=== PATIENT | female | born 1990 | race Two or more races ===

== ENCOUNTER 2024-11-18 08:40 | Emergency (ER) | payer OTHER ==
[~2024-11-18] VITALS: Ht 157.5 cm; Wt 46.7 kg
[2024-11-18] MEDS ORDERED: ACETAMINOPHEN 500 MG GEL..CAP PO ONE ×2 (09:15)
[2024-11-18] MEDS ORDERED: KETOROLAC TROMETHAMINE 30 MG VIAL ONE (09:15)
[2024-11-18] MEDS ORDERED: FAMOTIDINE/PF 20 MG in 0.9 % SODIUM CHLORIDE 8 ML IV PUSH ONE (09:15)
[2024-11-18] MEDS ORDERED: KETOROLAC TROMETHAMINE 30 MG VIAL IU ONE (09:15)
[2024-11-18] MEDS ORDERED: 0.9 % SODIUM CHLORIDE 1,000 ML IV SCH (09:15)
[2024-11-18] MEDS ORDERED: FAMOTIDINE/PF 20 MG/2 ML VIAL ONE ×2 (09:15→09:22)
[2024-11-18 10:07] LABS: BASO % 0.4 % (0.1-1.2); EOS # 0.13 (0.04-0.54); EOS % 2.6 % (0.7-7.0); LYMPH # 1.96 (1.18-3.74); LYMPH % 39.7 % (19.3-53.1); MEAN PLATELET VOLUME 10.80 fl (9.4-12.4); MONO # 0.32 (0.24-0.82); MONO % 6.5 % (4.7-12.5); NEUT # 2.51 (1.56-6.13); NEUT % 50.8 % (34.0-71.1); RED CELL DISTRIBUTION WIDTH 13.0 % (11.6-14.4)
[2024-11-18 10:49] LABS: URINE APPEARANCE Clear; URINE BILIRRUBIN Negative (NEGATIVE); URINE BLOOD Moderate; URINE COLOR Yellow; URINE GLUCOSE Negative (NEGATIVE); URINE KETONE Negative (NEGATIVE); URINE LEUKOCYTE Small; URINE NITRATE Negative; URINE PROTEIN Negative (NEGATIVE); URINE UROBILINOGEN 0.2 E.U./dl
[2024-11-18 10:52] LABS: URINE BACTERIA 13.1 uL (0.0-1933); URINE EPITHELIAL CELLS 6.7 uL (0.0-38.8); URINE RBC 157.9 uL (0.0-20.8); URINE WBC 24.8 uL (0.0-23.2)
[2024-11-18 10:54] LABS: URINE CAST 0.00 uL (0.0-1.40)
[2024-11-18 11:02] LABS: ALT/SGPT 24 U/L (12-78); AST/SGOT 14 U/L (15-37); BILIRUBIN TOTAL 0.37 mg/dL (0.3-1.2); BUN CREA RATIO 20 (7.0-25.0); CREATININE SERUM 0.60 mg/dL (0.55-1.02); GFR 115.13; GLOBULINA 3.4 G/DL (2.4-3.5); GLUCOSE FASTING 79 mg/dL (65-100); OSMOLALITY SERUM 284 MOSM/KG (275-295)
[2024-11-18 11:33] LABS: HCG QUANTITATIVE < 1 mUI/mL (1-3)
[2024-11-18 11:54] LABS: EOSINOPHIL MAN 5.0 %; LYMPHOCYTE MAN 40.0 %; MONOCYTE MAN 6.0 %; NEUTROPHILS MAN 40.0 %
[2024-11-18] MEDS ORDERED: TAMSULOSIN HCL 0.4 MG CAP PO ONE ×2 (13:30→13:49)
[2024-11-18] MEDS ORDERED: MACROBID 100 M100 MG PO (13:34)
[2024-11-18] MEDS ORDERED: TAMS0.4C PO (13:34)
[2024-11-18] MEDS ORDERED: KETO10TA2 PO (13:34)
[2024-11-18] MEDS ORDERED: PYRIDIUM200 MG PO (13:34)
== END 2024-11-18 14:18 | disposition home or self-care (01) ==
LOC: ER 08:40
PROVIDERS: General Practice
DX: N39.0 Urinary tract infection, site not specified (principal); N20.0 Calculus of kidney; Z91.041 Radiographic dye allergy status; Z91.013 Allergy to seafood; N20.1 Calculus of ureter